=== PATIENT | male | born 1935 | race Caucasian/White ===

== ENCOUNTER 2018-09-09 15:47 | Inpatient (IN) | payer MEDICARE, OTHER ==
[~2018-09-09] VITALS: Ht 180.3 cm; Wt 102.6 kg
--- NOTE | 2018-09-09 16:01 | NUR ---
pt upright on gurney awake & comfortable, responds approp to staff, NAD at rest, comfort measures provided, at BS, call light within reach.
--- NOTE | 2018-09-09 16:15 | NUR ---
CXR & US at BS.
[2018-09-09] MEDS ORDERED: carvedilol PO (16:22)
[2018-09-09] MEDS ORDERED: lipitor PO (16:22)
[2018-09-09] MEDS ORDERED: APIX5TAB PO (16:22)
[2018-09-09] MEDS ORDERED: PANT40TA5 PO (16:22)
[2018-09-09] MEDS ORDERED: FINESTERIDE PO (16:22)
[2018-09-09] MEDS ORDERED: ASPIRIN 81 MG TABLET CHEW PO ONE (16:30)
[2018-09-09] MEDS ORDERED: SODIUM CHLORIDE FLUSH 10ML SYR IVF ONE (16:30)
[2018-09-09] MEDS ORDERED: ASPIRIN 81 MG TABLET CHEW ONE (16:37)
[2018-09-09 16:46] LABS: ALBUMIN 3.5 g/dL (3.4-5.0); ANION GAP 5 mmol/L (5-15); CALCIUM 9.5 mg/dL (8.5-10.1); CHLORIDE 110 mmol/L (98-107)
[2018-09-09 16:50] LABS: TROPONIN I 0.076 ng/mL (0.000-0.045)
[2018-09-09 16:52] LABS: BASOPHILS # (AUTO) 0.01 x10^3/uL (0-0.1); BASOPHILS % (AUTO) 0 % (0-1); EOSINOPHILS # (AUTO) 0.03 x10^3/uL (0-0.4); EOSINOPHILS % (AUTO) 1 % (1-7); LYMPHOCYTES # (AUTO) 1.37 x10^3/uL (1-3.4); LYMPHOCYTES % (AUTO) 26 % (22-44); MD NO; MEAN CORPUSCULAR HEMOGLOBIN 30.3 pg (27.5-34.5); MEAN CORPUSCULAR HGB CONC 32.5 g/dL (33.2-36.2); MEAN PLATELET VOLUME 8.2 fL (7.4-10.4); MONOCYTES # (AUTO) 0.68 x10^3/uL (0.2-0.8); MONOCYTES % (AUTO) 13 % (2-9); NEUTROPHILS % (AUTO) 60 % (42-75); PLATELET COUNT 115 x10^3/uL (130-400); RED BLOOD COUNT 4.73 x10^6/uL (4.38-5.82); RED CELL DISTRIBUTION WIDTH 14.4 % (9.4-14.8)
--- NOTE | 2018-09-09 17:01 | NUR ---
pt remains upright on gurney awake & comfortable, responds approp to staff, NAD at rest, comfort measures provided, at BS, call light within reach.
[2018-09-09] MEDS ORDERED: PRIM50TA34 PO (17:48)
[2018-09-09] MEDS ORDERED: TAMS-11 PO (17:48)
[2018-09-09] MEDS ORDERED: CARV6.252 PO (17:48)
[2018-09-09] MEDS ORDERED: IPRA4AER INH (17:48)
[2018-09-09] MEDS ORDERED: FINA5TAB4 PO (17:48)
[2018-09-09] MEDS ORDERED: NITR0.4T41 SL (17:48)
[2018-09-09] MEDS ORDERED: LISI5TAB7 PO (17:48)
[2018-09-09] MEDS ORDERED: SERT50TA28 PO (17:48)
[2018-09-09] MEDS ORDERED: LOVA40TA2 PO (17:48)
[2018-09-09] MEDS ORDERED: VIT1TABL32 PO (17:48)
[2018-09-09] MEDS ORDERED: POLY17PO5 PO (17:51)
[2018-09-09] MEDS ORDERED: NITROGLYCERIN 0.4 MG BOTTLE (25 TABS) SL PRN (18:00)
[2018-09-09] MEDS ORDERED: ONDANSETRON ODT 4 MG PO PRN (18:00)
[2018-09-09] MEDS ORDERED: BISACODYL 10 MG SUPP PR PRN (18:00)
[2018-09-09] MEDS ORDERED: morphine SULFATE 10 MG/ML, 1ML IVPush PRN (18:00)
[2018-09-09] MEDS ORDERED: ALBUTEROL/IPRATROPIUM 2.5MG/0.5MG, 3 ML NPPB PRN (18:00)
[2018-09-09] MEDS ORDERED: SODIUM CHLORIDE 0.9% 1,000ML IVBOLUS ONE (18:00)
[2018-09-09] MEDS ORDERED: ACETAMINOPHEN 325 MG TABLET PO PRN (18:00)
[2018-09-09] MEDS ORDERED: POLYETHYLENE GLYCOL 17 GM PACKET PO PRN (18:00)
--- NOTE | 2018-09-09 18:01 | NUR ---
pt upright on gurney awake & comfortable, responds approp to staff, NAD at rest, comfort measures provided, at BS, call light within reach.
--- NOTE | 2018-09-09 18:08 | NUR ---
pt to CT
--- NOTE | 2018-09-09 18:38 | NUR ---
Pt to be admitted to [facility], room 506. Report called to Marcelo.
[2018-09-09] MEDS: CARVEDILOL 6.25 MG TABLET PO SCH (19:26)
[2018-09-09 19:30] VITALS: BP 216/97
[2018-09-09 20:30] VITALS: BP 179/82
[2018-09-09] MEDS: APIXABAN 5 MG TABLET PO SCH (21:49)
[2018-09-09] MEDS: LOVASTATIN 40 MG TABLET PO SCH (21:49)
[2018-09-09] MEDS: SODIUM CHLORIDE FLUSH 10ML SYR IVF SCH (21:49)
[2018-09-10 00:27] VITALS: BP 131/63
[2018-09-10 00:32] LABS: TROPONIN I 0.395 ng/mL (0.000-0.045)
[2018-09-10 06:20] LABS: BASOPHILS # (AUTO) 0.02 x10^3/uL (0-0.1); BASOPHILS % (AUTO) 0 % (0-1); EOSINOPHILS # (AUTO) 0.04 x10^3/uL (0-0.4); EOSINOPHILS % (AUTO) 1 % (1-7); LYMPHOCYTES # (AUTO) 0.95 x10^3/uL (1-3.4); LYMPHOCYTES % (AUTO) 21 % (22-44); MD NO; MEAN CORPUSCULAR HGB CONC 32.2 g/dL (33.2-36.2); MEAN PLATELET VOLUME 8.4 fL (7.4-10.4); MONOCYTES # (AUTO) 0.49 x10^3/uL (0.2-0.8); MONOCYTES % (AUTO) 11 % (2-9); NEUTROPHILS # (AUTO) 3.12 x10^3/uL (1.8-6.8); NEUTROPHILS % (AUTO) 68 % (42-75); PLATELET COUNT 106 x10^3/uL (130-400); RED BLOOD COUNT 4.71 x10^6/uL (4.38-5.82); RED CELL DISTRIBUTION WIDTH 14.7 % (9.4-14.8)
[2018-09-10] MEDS: ASPIRIN 81 MG TABLET EC PO SCH (06:20)
[2018-09-10 06:34] LABS: ALBUMIN 3.2 g/dL (3.4-5.0); ANION GAP 7 mmol/L (5-15); CALCIUM 9.1 mg/dL (8.5-10.1); CHLORIDE 111 mmol/L (98-107)
[2018-09-10 06:41] LABS: ALANINE AMINOTRANSFERASE 19 U/L (12-78); ALKALINE PHOSPHATASE 75 U/L (45-117); BILIRUBIN,TOTAL 0.6 mg/dL (0.2-1.0); CHOLESTEROL, TOTAL 118 mg/dL (140-239); CREATININE 1.28 mg/dL (0.7-1.3); HDL CHOL % 33 % (26-37); HDL CHOLESTEROL (DIRECT) 39 mg/dL (40-60); LDL CHOLESTEROL,CALCULATED 56 mg/dL (54-169); LDL/HDL RATIO 1.4 (0.5-3.0); TOTAL PROTEIN 7.1 g/dL (6.4-8.2); TRIGLYCERIDES 113 mg/dL (50-200); TROPONIN I 0.317 ng/mL (0.000-0.045); VLDL CHOLESTEROL 23 mg/dL (0-25)
[2018-09-10] MEDS ORDERED: REGADENOSON 0.4 MG/5 ML SYRINGE ONE (08:22)
[2018-09-10 08:24] VITALS: BP 180/90
[2018-09-10 08:30] VITALS: BP 179/94
[2018-09-10] MEDS: SENNA/DOCUSATE TABLET PO SCH (09:00)
[2018-09-10] MEDS ORDERED: TEMPLATE NON-FORMULARY MED. (Vit A,C & E/Lutein/Minerals** (Ocuvite Tablet**) 1 TAB) PO SCH (09:00)
[2018-09-10] MEDS ORDERED: SERTRALINE 100MG TABLET ONE (09:02)
[2018-09-10] MEDS: PRIMIDONE 50 MG TABLET PO SCH (09:13)
[2018-09-10] MEDS: SERTRALINE 50MG TABLET PO SCH (09:13)
[2018-09-10] MEDS: FINASTERIDE 5 MG TABLET PO SCH (09:13)
[2018-09-10] MEDS: TAMSULOSIN 0.4 MG CAP.ER.24H PO SCH (09:13)
[2018-09-10] MEDS: CARVEDILOL 6.25 MG TABLET PO SCH (09:14)
[2018-09-10] MEDS: APIXABAN 5 MG TABLET PO SCH ×2 (09:15→20:44)
[2018-09-10] MEDS: PANTOPROZOLE 40MG TABLET PO SCH (09:15)
[2018-09-10] MEDS: SODIUM CHLORIDE FLUSH 10ML SYR IVF SCH ×2 (09:15→20:44)
[2018-09-10] MEDS: LISINOPRIL 5 MG TABLET PO SCH (09:15)
[2018-09-10 12:58] VITALS: BP 131/70
[2018-09-10 19:04] VITALS: BP 152/77
[2018-09-10] MEDS: LOVASTATIN 40 MG TABLET PO SCH (20:44)
[2018-09-10] MEDS: CARVEDILOL 12.5 MG TABLET PO SCH (20:44)
[2018-09-11 01:00] VITALS: BP 148/78
[2018-09-11 05:03] LABS: BASOPHILS # (AUTO) 0.03 x10^3/uL (0-0.1); BASOPHILS % (AUTO) 1 % (0-1); EOSINOPHILS # (AUTO) 0.04 x10^3/uL (0-0.4); EOSINOPHILS % (AUTO) 1 % (1-7); LYMPHOCYTES # (AUTO) 1.08 x10^3/uL (1-3.4); LYMPHOCYTES % (AUTO) 22 % (22-44); MD NO; MEAN CORPUSCULAR HGB CONC 32.2 g/dL (33.2-36.2); MEAN CORPUSCULAR VOLUME 93.4 fL (81-97); MEAN PLATELET VOLUME 8.2 fL (7.4-10.4); MONOCYTES # (AUTO) 0.49 x10^3/uL (0.2-0.8); MONOCYTES % (AUTO) 10 % (2-9); NEUTROPHILS # (AUTO) 3.31 x10^3/uL (1.8-6.8); NEUTROPHILS % (AUTO) 67 % (42-75); PLATELET COUNT 107 x10^3/uL (130-400); RED BLOOD COUNT 4.69 x10^6/uL (4.38-5.82); RED CELL DISTRIBUTION WIDTH 14.7 % (9.4-14.8)
[2018-09-11 05:08] LABS: ALANINE AMINOTRANSFERASE 15 U/L (12-78); ALBUMIN 3.2 g/dL (3.4-5.0); ANION GAP 2 mmol/L (5-15); CALCIUM 9.3 mg/dL (8.5-10.1); CHLORIDE 111 mmol/L (98-107); CREATININE 1.39 mg/dL (0.7-1.3)
[2018-09-11 05:11] LABS: ALKALINE PHOSPHATASE 71 U/L (45-117); BILIRUBIN,TOTAL 0.9 mg/dL (0.2-1.0)
[2018-09-11] MEDS: ASPIRIN 81 MG TABLET EC PO SCH (05:28)
[2018-09-11 06:45] VITALS: BP 168/79
[2018-09-11] MEDS: PANTOPROZOLE 40MG TABLET PO SCH (08:47)
[2018-09-11] MEDS: LISINOPRIL 5 MG TABLET PO SCH (08:47)
[2018-09-11] MEDS: SERTRALINE 50MG TABLET PO SCH (08:47)
[2018-09-11] MEDS: TAMSULOSIN 0.4 MG CAP.ER.24H PO SCH (08:47)
[2018-09-11] MEDS: PRIMIDONE 50 MG TABLET PO SCH (08:47)
[2018-09-11] MEDS: APIXABAN 5 MG TABLET PO SCH (08:47)
[2018-09-11] MEDS: SODIUM CHLORIDE FLUSH 10ML SYR IVF SCH (08:48)
[2018-09-11] MEDS: CARVEDILOL 12.5 MG TABLET PO SCH (08:48)
[2018-09-11] MEDS: FINASTERIDE 5 MG TABLET PO SCH (08:48)
[2018-09-11] MEDS: SENNA/DOCUSATE TABLET PO SCH (08:48)
[2018-09-11] MEDS ORDERED: CARV12.543 PO (10:37)
== END 2018-09-11 13:53 | disposition home or self-care (01) | DRG 281 ==
LOC: ED 18:00 → EDIP 18:30 → 5SO 19:15 → DCLOUNGE 09-11 13:23
PROVIDERS: ADMIT Internal Medicine; ATTEND Internal Medicine
PROC: 5A09357 Assistance with Respiratory Ventilation, Less than 24 Consecutive Hours, Continuous Positive Airway Pressure (ICD-10-PCS; principal; 2018-09-10)
PROC: 5A09357 Assistance with Respiratory Ventilation, Less than 24 Consecutive Hours, Continuous Positive Airway Pressure (ICD-10-PCS; 2018-09-11)
DX: I21.4 Non-ST elevation (NSTEMI) myocardial infarction (principal); D68.69 Other thrombophilia; N18.4 Chronic kidney disease, stage 4 (severe); I48.92 Unspecified atrial flutter; Z66 Do not resuscitate; I12.9 Hypertensive chronic kidney disease with stage 1 through stage 4 chronic kidney disease, or unspecified chronic kidney disease; D69.6 Thrombocytopenia, unspecified; E78.5 Hyperlipidemia, unspecified; G89.29 Other chronic pain; I25.10 Atherosclerotic heart disease of native coronary artery without angina pectoris; I48.2 Chronic atrial fibrillation; J44.9 Chronic obstructive pulmonary disease, unspecified; K21.9 Gastro-esophageal reflux disease without esophagitis; N40.0 Benign prostatic hyperplasia without lower urinary tract symptoms; Z79.01 Long term (current) use of anticoagulants; Z86.73 Personal history of transient ischemic attack (TIA), and cerebral infarction without residual deficits; Z86.79 Personal history of other diseases of the circulatory system; Z87.891 Personal history of nicotine dependence; Z95.0 Presence of cardiac pacemaker; Z95.1 Presence of aortocoronary bypass graft; Z98.1 Arthrodesis status; Z82.49 Family history of ischemic heart disease and other diseases of the circulatory system; Z80.8 Family history of malignant neoplasm of other organs or systems; Z88.8 Allergy status to other drugs, medicaments and biological substances
CPT/HCPCS: 36415; 71045; 71275; 78452; 80048; 80053; 80061; 82040; 82962; 83735; 84100; 84484; 85025; 85379; 93005; 93017; 93306; 96360; G0378; J2785; A9502; C9898; J7030